=== PATIENT | male | born 2000 | race African-American/Black ===

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

== ENCOUNTER 2018-03-06 11:07 | Emergency (ER) | payer SELFPAY ==
[2018-03-06 11:22] VITALS: BP 143/93
--- NOTE | 2018-03-06 11:43 | ER Document Report ---
ED Medical Screen (RME) - General Chief Complaint: Psych Problem Stated Complaint: PSYCH EVAL Time Seen by Provider: 03/06/18 11:26 Notes: Patient is a 17-year-old male that presents to the emergency department for chief complaint of bipolar and hallucinations. Patient not currently on medications for bipolar. He has had combative behavior at home and hallucinations. History of hospitalizations of Vicodin for similar behavior ROS: GENERAL: Denies fever of chills CV: Denies chest pain PHYSICAL EXAMINATION: GENERAL: Well-appearing, well-nourished and in no acute distress. HEAD: Atraumatic, normocephalic. EYES: Pupils equal round extraocular movements intact, conjunctiva are normal. ENT: Nares patent NECK: Normal range of motion LUNGS: No respiratory distress Musculoskeletal: Normal range of motion NEUROLOGICAL: Normal speech, normal gait. PSYCH: Poor eye contact, withdrawn, agitated MDM: Patient seen and examined for rapid initial assessment. Vital signs reviewed. A comprehensive ED assessment and evaluation of the patient, analysis of test results and completion of the medical decision making process will be conducted by additional ED providers. TRAVEL OUTSIDE OF THE [place] IN LAST 30 DAYS: No - Related Data Allergies/Adverse Reactions: No Known Allergies Allergy (Verified 03/06/18 11:08) Past Medical History Renal/ Medical History: Denies: Hx Peritoneal Dialysis Psychiatric Medical History: Reports: Hx Bipolar Disorder - Immunizations History of Influenza Vaccine for 03/2017 - 08/2017 Season: Unknown Physical Exam - Vital signs Vitals: Temp Pulse Resp BP Pulse Ox 98.1 F 86 16 143/93 H 99 03/06/18 11:20 03/06/18 11:20 03/06/18 11:20 03/06/18 11:20 03/06/18 11:20 Course - Vital Signs Vital signs: Temp Pulse Resp BP Pulse Ox 98.1 F 86 16 143/93 H 99 03/06/18 11:20 03/06/18 11:20 03/06/18 11:20 03/06/18 11:20 03/06/18 11:20 Doctor's Discharge - Discharge Referrals: MEAGAN ARTIS MD [Primary Care Provider] - Follow up as needed
--- NOTE | 2018-03-06 12:59 | ER Document Report ---
ED General - General Chief Complaint: Psych Problem Stated Complaint: PSYCH EVAL Time Seen by Provider: 03/06/18 11:26 TRAVEL OUTSIDE OF THE [place] IN LAST 30 DAYS: No - HPI Notes: Patient is a 17-year-old male with a history of bipolar and mental health disorder who presents to the ED requesting be placed back on medications. Patient states that he has been smoking weed over the last 8 months and stopped taking his psych meds. Patient states that the weight has been making him trip out and hallucinate. Patient has had decreased p.o. intake, but is still able to eat and drink without any difficulties. He is urinating normally. Patient states that aside from his head feeling foggy, he feels well. He denies any drug allergies. He is accompanied today by his mother. He has not had any SI/ HI. Denies any headache, fever, head injury, neck pain, URI, sore throat, chest pain, palpitations, syncope, cough, shortness of breath, wheeze, dyspnea, abdominal pain, nausea/vomiting/diarrhea, urinary retention, dysuria, hematuria , loss of control of bowel or bladder, numbness/tingling, muscle paralysis/ weakness, seizure, or rash. - Related Data Allergies/Adverse Reactions: No Known Allergies Allergy (Verified 03/06/18 11:08) Past Medical History - Social History Smoking Status: Never Smoker Chew tobacco use (# tins/day): No Frequency of alcohol use: None Drug Abuse: Marijuana Family History: None Patient has suicidal ideation: No Patient has homicidal ideation: No Renal/ Medical History: Denies: Hx Peritoneal Dialysis Psychiatric Medical History: Reports: Hx Bipolar Disorder Review of Systems - Review of Systems -: Yes All other systems reviewed and negative Physical Exam - Vital signs Vitals: Temp Pulse Resp BP Pulse Ox 98.1 F 86 16 143/93 H 99 03/06/18 11:20 03/06/18 11:20 03/06/18 11:20 03/06/18 11:20 03/06/18 11:20 - Notes Notes: PHYSICAL EXAMINATION: GENERAL: Well-appearing, well-nourished and in no acute distress. HEAD: Atraumatic, normocephalic. EYES: Pupils equal round and reactive to light, extraocular movements intact, sclera anicteric, conjunctiva are normal. ENT: Nares patent and without discharge. oropharynx clear without exudates. No tonsilar hypertrophy or erythema. Moist mucous membranes. NECK: Normal range of motion, supple without lymphadenopathy LUNGS: Breath sounds clear to auscultation bilaterally and equal. No wheezes rales or rhonchi. HEART: Regular rate and rhythm without murmurs, rubs, gallops. ABDOMEN: Soft, nontender, nondistended abdomen. No guarding, no rebound. No masses appreciated. Normal bowel sounds present. No CVA tenderness bilaterally. Musculoskeletal: FROM to passive/active. Strength 5+/5. Extremities: No cyanosis, clubbing, or edema b/l. Peripheral pulses 2+. Capillary refill less than 3 seconds. NEUROLOGICAL: Cranial nerves grossly intact. Normal speech, normal gait. PSYCH: excitable, anxious SKIN: Warm, Dry, normal turgor, no rashes or lesions noted. Course - Re-evaluation Re-evalutation: 03/06/18 12:59 Pt will be eval'd by our psychology team. 03/06/18 13:35 Patient is an afebrile, well-hydrated, 17-year-old male who presents to the ED for mental health disorder. Vitals are acceptable without any significant tachycardia, tachypnea, or hypoxia. PE is otherwise unremarkable. Patient has no SI/HI. He is nontoxic-appearing and is tolerating p.o. without difficulties. He is accompanied by mother who is going to keep a close eye on him at home and feels comfortable in doing so. Psychology team reviewed and evaluated the patient and they recommended Zyprexa, Cogentin, and clonidine. No further labs or imaging warranted at this time. Current lab work acceptable. Conservative measures for symptoms. Recheck with your PCM in 3-5 days. Schedule appointment with a mental health clinic. Return to the ED with any worsening/concerning symptoms otherwise as reviewed in discharge. Patient and mother are in agreement. - Vital Signs Vital signs: Temp Pulse Resp BP Pulse Ox 98.1 F 86 16 143/93 H 99 03/06/18 11:20 03/06/18 11:20 03/06/18 11:27 03/06/18 11:20 03/06/18 11:20 - Laboratory Result Diagrams: 03/06/18 12:08 03/06/18 12:08 Laboratory results interpreted by me: 03/06/18 12:08 Total Protein 8.6 H Salicylates < 1.0 L Acetaminophen < 10 L Discharge - Discharge Clinical Impression: Mental health disorder Condition: Stable Disposition: HOME, SELF-CARE Additional Instructions: Take your medications as directed Healthy diet and exercise Avoid smoking marijuana or doing other drugs Recheck with your PCM in 3-5 days Schedule an appointment with a mental health facility Return to the ED with any worsening symptoms and/or development of fever, headache, changes in behavior/mentation/vision/speech, chest pain, palpitations , syncope, shortness of breath, trouble breathing, abdominal pain, n/v/d, blood in stool/urine, loss of control of bowel/bladder, urinary retention, muscle weakness/paralysis, saddle anesthesia, numbness/tingling, or other worsening symptoms that are concerning to you. Prescriptions: Clonidine HCl [Catapres 0.1 mg Tablet] 0.1 mg PO QHS #30 tablet Benztropine Mesylate [Cogentin 1 mg Tablet] 1 tab PO DAILY #30 tab Olanzapine [Zyprexa] 5 mg PO BID #60 tablet Forms: Elevated Blood Pressure, Smoking Cessation Education Referrals: MEAGAN ARTIS MD [Primary Care Provider] - Follow up in 3-5 days [facility] [Provider Group] - Follow up in 1 week
[2018-03-06 13:04] LABS: ALANINE AMINOTRANSFERASE 24 U/L (10-40); ALBUMIN 5.1 g/dL (3.7-5.6); ALKALINE PHOSPHATASE 81 U/L (65-260); ANION GAP 10 (5-19); ASPARTATE AMINO TRANSFERASE 26 U/L (10-45); BILIRUBIN,DIRECT 0.3 mg/dL (0.0-0.4); BILIRUBIN,TOTAL 0.4 mg/dL (0.2-1.3); BLOOD UREA NITROGEN 12 mg/dL (7-20); CALCIUM 10.2 mg/dL (8.4-10.2); CARBON DIOXIDE 27 mmol/L (22-30); CHLORIDE 104 mmol/L (98-107); GLUCOSE 108 mg/dL (75-110); SODIUM 140.6 mmol/L (137-145); TOTAL PROTEIN 8.6 g/dL (6.3-8.2)
[2018-03-06 13:05] LABS: ACETAMINOPHEN < 10 ug/mL (10-30); ALCOHOL < 10 mg/dL (NONE DETECTED); SALICYLATE < 1.0 mg/dL (2.0-20.0)
[2018-03-06 13:20] LABS: HEMATOCRIT 42.8 % (37.9-51.0); HEMOGLOBIN 14.6 g/dL (13.5-17.0); MEAN CORPUSCULAR HEMOGLOBIN 28.8 pg (27.0-33.4); MEAN CORPUSCULAR HGB CONC 34.1 g/dL (32.0-36.0); MEAN CORPUSCULAR VOLUME 85 fl (80-97); RED BLOOD COUNT 5.05 10^6/uL (4.35-5.55)
[2018-03-06 13:21] LABS: BASOPHILS % (AUTO) 0.2 % (0-2); EOSINOPHILS % (AUTO) 0.3 % (0-6); LYMPHOCYTES % (AUTO) 24.2 % (13-45); MONOCYTES % (AUTO) 6.5 % (3-13); PLATELET COUNT 199 10^3/uL (150-450); SEGMENTED NEUTROPHILS % (AUTO) 68.8 % (42-78)
[2018-03-06 13:22] LABS: ABSOLUTE LYMPHOCYTES (AUTO) 1.2 10^3/uL (0.5-4.7); ABSOLUTE MONOCYTES (AUTO) 0.3 10^3/uL (0.1-1.4); ABSOLUTE NEUT (AUTO) 3.5 10^3/uL (1.7-8.2); TOTAL CELLS COUNTED % (AUTO) 100 %
[2018-03-06 13:22] LABS: APPEARANCE,URINE CLEAR; BILIRUBIN,URINE NEGATIVE (NEGATIVE); COLOR,URINE STRAW; GLUCOSE, URINE NEGATIVE (NEGATIVE); KETONES,URINE NEGATIVE (NEGATIVE); LEUKOCYTE ESTERASE,URINE NEGATIVE (NEGATIVE); NITRITE,URINE NEGATIVE (NEGATIVE); PROTEIN,URINE NEGATIVE (NEGATIVE); URINE SPECIFIC GRAVITY 1.006; UROBILINOGEN,URINE NEGATIVE mg/dL (<2.0)
[2018-03-06] MEDS ORDERED: BENZTROPINE MESYLATE 1 MG TABLET PO ONE (13:36)
[2018-03-06] MEDS ORDERED: OLANZAPINE 5 MG TABLET PO ONE (13:36)
[2018-03-06 13:45] LABS: URINE AMPHETAMINES SCREEN NEGATIVE; URINE BARBITURATES SCREEN NEGATIVE; URINE BENZODIAZEPINES SCREEN NEGATIVE; URINE COCAINE SCREEN NEGATIVE; URINE MARIJUANA (THC) SCREEN UNCONFIRMED POSITIVE; URINE METHADONE SCREEN NEGATIVE; URINE PHENCYCLIDINE SCREEN NEGATIVE
--- NOTE | 2018-03-06 13:46 | PSYCHOLOGICAL NOTE ---
Psych Note - Psych Note Psych Note: Reason for Consult: psychosis Patient is a 17-year-old male that presents to the emergency department for chief complaint of bipolar and hallucinations. Patient's mother discloses that when the patient's on his medication she can mange him. Patient discloses that he is trying to get medication so he can get his head on right. He reports that he has spoke some bad weed but really needs to get his head on right. He discloses that he normally takes medication but is out and is able to identify his medications as Zyprexa, Cogentin, and clonidine. Patient is alert and orientated to person, place, time and circumstance. Mood is euthymic with congruent affect. Patient denies suicidal and homicidal ideations. Delusions were absent. Patient's thought processes are organized and linear. Eye contact was well-maintained. Conversational speech was within normal rate, tone and prosody. Intellectual abilities appear to be within the average range. Attention and concentration are fair. Insight, judgment, impulse control are fair. Patient is recommended to restart his home medications Zyprexa 5mg twice daily Cogentin 1mg daily Clonidine 0.1 mg every evening at bedtime 298.9 (F29) unspecified psychosis R/O 296.80 (F31.9) Unspecified Bipolar and Related Disorder Impression/Plan: Patient is considered cleared from acute psychiatric services. Patient has a history of presenting after smoking marijuana and having difficulties in the after effects. Patient is demonstrating that he has organized and linear thought processes as evidenced by his plan to get restarted on his medications. Patient is not in a manic state; he is observed to be sitting calmly in the bed and is redirectable. Patient still does have some moments of repeatedly stating comments; ie need to get my head on right. Patient's mother she agrees to be part of the discharge plan which includes no access to medications or weapons and follows through with outpatient mental health treatment i.e. medication management and therapeutic intervention. Clinician highly encouraged patient to cease any use of illegal substances. Dr. San was consulted on the care and management of this patient; attending physician is in agreement with recommendations and dispositions.
--- NOTE | 2018-03-06 23:02 | EKG REPORT ---
SEVERITY:- ABNORMAL ECG - SINUS RHYTHM ATRIAL PREMATURE COMPLEX NONSPECIFIC INTRAVENTRICULAR CONDUCTION DELAY : Confirmed by: Peggy Covarrubias 06-Mar-2018 23:01:07
== END 2018-03-06 13:57 | disposition home or self-care (01) ==
LOC: ER 11:07
DX: F29 Unspecified psychosis not due to a substance or known physiological condition (principal); T43.596A Underdosing of other antipsychotics and neuroleptics, initial encounter; T44.3X6A Underdosing of other parasympatholytics [anticholinergics and antimuscarinics] and spasmolytics, initial encounter; T46.5X6A Underdosing of other antihypertensive drugs, initial encounter; Z91.128 Patient's intentional underdosing of medication regimen for other reason; F12.10 Cannabis abuse, uncomplicated
CPT/HCPCS: 36415; 80053; 80307; 81001; 85025; 93005; 93010; 99285

== ENCOUNTER 2018-05-19 14:34 | Emergency (ER) | payer SELFPAY ==
[2018-05-19 14:47] VITALS: BP 128/88
--- NOTE | 2018-05-19 15:08 | ER Document Report ---
ED General <VENU SAN - Last Filed: 05/19/18 16:29> - General TRAVEL OUTSIDE OF THE [place] IN LAST 30 DAYS: No <KURT MOCTEZUMA - Last Filed: 05/19/18 16:48> - General Chief Complaint: Psych Problem Stated Complaint: PSYCH EVAL Time Seen by Provider: 05/19/18 15:07 Notes: Patient is a 18-year-old male that presents to the emergency department for chief complaint of bipolar disorder. Mother is providing history. She states that the patient has been out of medication for bipolar disorder for approximately 1 month, he was previously on Zyprexa, but she is been unable to afford the medication, he was recently in the emergency department and February , for similar symptoms. He has had decreased sleep, and some paranoia, he has been tearful, and more agitated. She denies him being aggressive, or violent, and he has not had suicidal or homicidal thoughts. He denies having any hallucinations at this time. She thinks the main issues use has been off his medication and if he could get back on them that he would be much better. No other complaints at this time. Past Medical History: Bipolar disorder Past Surgical History: Denies surgical history Social History: Denies tobacco, alcohol or illicit drug use Family History: Reviewed and noncontributory for presenting illness Allergies: Reviewed, see documented allergy list. REVIEW OF SYSTEMS: Other than noted above, the 12 point review of systems was reviewed with the patient and were negative, all pertinent findings are included in the HPI. PHYSICAL EXAMINATION: Vital signs reviewed, nursing noted reviewed. GENERAL: Well-appearing, well-nourished, no acute distress HEAD: Atraumatic, normocephalic. EYES: Eyes appear normal, extraocular movements intact, sclera anicteric, conjunctiva are normal. ENT: nares patent, oropharynx clear without exudates. Moist mucous membranes. NECK: Normal range of motion, supple without lymphadenopathy LUNGS: Breath sounds clear to auscultation bilaterally and equal. No wheezes rales or rhonchi. HEART: Regular rate and rhythm without murmurs ABDOMEN: Soft, nontender, normoactive bowel sounds. No rebound, guarding, or rigidity. No masses appreciated. EXTREMITIES: Nontender, good range of motion, no pitting or edema. NEUROLOGICAL: No focal neurological deficits. Moves all extremities spontaneously Motor and sensory grossly intact on exam. PSYCH: Flat affect, mildly agitated, but not aggressive SKIN: Warm, Dry, normal turgor, no rashes or lesions noted on exposed skin (KURT MOCTEZUMA) - Related Data Allergies/Adverse Reactions: No Known Allergies Allergy (Verified 03/06/18 11:08) Past Medical History - Social History Smoking Status: Unknown if Ever Smoked <VENU SAN - Last Filed: 05/19/18 16:29> - Social History Family History: None Renal/ Medical History: Denies: Hx Peritoneal Dialysis Psychiatric Medical History: Reports: Hx Bipolar Disorder <KURT MOCTEZUMA - Last Filed: 05/19/18 16:48> - Vital signs Vitals: Pulse Resp BP Pulse Ox 104 H 18 128/88 H 98 05/19/18 14:46 05/19/18 14:46 05/19/18 14:46 05/19/18 14:46 Course - Laboratory Result Diagrams: 05/19/18 15:48 05/19/18 15:48 <VENU SAN - Last Filed: 05/19/18 16:29> - Laboratory Result Diagrams: 05/19/18 15:48 05/19/18 15:48 <KURT MOCTEZUMA - Last Filed: 05/19/18 16:48> - Re-evaluation Re-evalutation: Patient seen and examined, vital signs reviewed. Medical screening testing was ordered including bloodwork, EKG, and toxicology. Results of testing were reviewed. Testing demonstrated unremarkable blood work. Patient has been stable from a hemodynamic standpoint. At this point I feel that the patient is medically cleared and can be further evaluated from a psychiatric standpoint for final disposition from the emergency department. Patient updated on plan of care. Case discussed with Dr. San, who assessed the patient, and is familiar with this patient, discussed with mother, administering 10 mg of IM Zyprexa, and then starting the patient on his home medications, provided that he is medically clear, and we will have him follow-up with outpatient psychiatry. He was previously on Zyprexa, Cogentin, and clonidine. (KURT MOCTEZUMA) - Vital Signs Vital signs: Temp Pulse Resp BP Pulse Ox 104 H 18 128/88 H 98 05/19/18 14:46 05/19/18 14:46 05/19/18 14:46 05/19/18 14:46 - Laboratory Laboratory results interpreted by me: 05/19/18 05/19/18 15:48 15:48 WBC 3.9 L Calcium 10.8 H Total Protein 9.3 H Albumin 5.6 H Salicylates < 1.0 L Acetaminophen < 10 L - EKG Interpretation by Me Additional EKG results interpreted by me: ECG demonstrates sinus rhythm with a ventricular rate of 99 bpm, normal axis, normal intervals, baseline artifact noted, no evidence of acute ischemia on this EKG, this is compared with prior EKG from 03/06/2018, without significant change. (KURT MOCTEZUMA) Discharge <VENU SAN - Last Filed: 05/19/18 16:29> <KURT MOCTEZUMA - Last Filed: 05/19/18 16:48> - Discharge Clinical Impression: Bipolar 1 disorder Condition: Stable Disposition: HOME, SELF-CARE Additional Instructions: You were assessed and evaluated in the Emergency Department by the Medical and Behavioral Health Teams and found to be appropriate for discharge. You were provided medication management for Bop;oar Disorder as you indicated you have been off your home medications of Zyprexa, Clonidine, Cogentin for approximately one month. You were given a dose of Zyprexa and scripts for ongoing medications until you are seen by your mental health provider. You are encouraged to follow up with your provider within the next 7 days for ongoing medication management. Medication Recommendations: 1. Zyprexa 5 mg twice per day 2. Cogention 1 mg daily 3. Clonidine 0.1 mg at bedtime. Bipolar Disorder Bipolar disorder is also called manic-depressive disorder. Depression alternates with brain hyperactivity called joanna. Each phase lasts from several days to a few weeks. We don't know exactly what causes bipolar disorder , but it's treatable. During the "manic phase," you may feel elated and energetic. You may have racing thoughts, rapid speech, increased activity, and grandiose ideas. During this time, you may not realize how poor your judgment is. Inappropriate spending, drug abuse, excessive alcohol use, marriage problems, and irresponsible sexual behavior are common during the manic phase. During the "depressive phase," you might feel depressed, guilty, worthless , fatigued, and unable to concentrate. You might have thoughts of suicide. Good treatments are available for bipolar disorder. [place] is a classic drug for bipolar disorder, and is still often useful. If the manic phase is very mild, an antidepressant alone can be prescribed. If the manic phase is very severe, an antipsychotic medicine (such as Haldol) may be needed. The treatment must be matched to your symptoms, so it's important to work closely with your psychiatric care provider. Contact your physician, the hospital emergency center, crisis line, or your counselor if you are losing control or having self-destructive thoughts. Please return to the Emergency Department if your symptoms worsen or return. Prescriptions: Benztropine Mesylate [Cogentin 1 mg Tablet] 1 mg PO QHS #30 tablet Clonidine HCl [Catapres] 0.1 mg PO QHS #30 tablet Olanzapine [Zyprexa 5 mg Tablet] 5 mg PO Q12 #60 tablet
[2018-05-19] MEDS ORDERED: OLANZAPINE 5 MG TABLET PO ONE (15:36)
[2018-05-19] MEDS ORDERED: HYDROXYZINE PAMOATE 50 MG CAPSULE PO ONE (15:36)
[2018-05-19 15:58] LABS: ABSOLUTE LYMPHOCYTES (AUTO) 1.1 10^3/uL (0.5-4.7); ABSOLUTE MONOCYTES (AUTO) 0.4 10^3/uL (0.1-1.4); ABSOLUTE NEUT (AUTO) 2.4 10^3/uL (1.7-8.2); BASOPHILS % (AUTO) 0.5 % (0-2); EOSINOPHILS % (AUTO) 0.5 % (0-6); HEMATOCRIT 44.3 % (37.9-51.0); HEMOGLOBIN 15.3 g/dL (13.5-17.0); LYMPHOCYTES % (AUTO) 27.4 % (13-45); MEAN CORPUSCULAR HEMOGLOBIN 28.9 pg (27.0-33.4); MEAN CORPUSCULAR HGB CONC 34.6 g/dL (32.0-36.0); MEAN CORPUSCULAR VOLUME 84 fl (80-97); MONOCYTES % (AUTO) 9.6 % (3-13); PLATELET COUNT 199 10^3/uL (150-450); RED BLOOD COUNT 5.29 10^6/uL (4.35-5.55); RED CELL DISTRIBUTION WIDTH 13.2 % (11.5-14.0); TOTAL CELLS COUNTED % (AUTO) 100 %; WHITE BLOOD COUNT 3.9 10^3/uL (4.0-10.5)
[2018-05-19] MEDS ORDERED: OLANZAPINE INJ/PF 10 MG SDV IM ONE (16:05)
[2018-05-19 16:19] LABS: ACETAMINOPHEN < 10 ug/mL (10-30); ALANINE AMINOTRANSFERASE 27 U/L (21-72); ALBUMIN 5.6 g/dL (3.5-5.0); ALCOHOL < 10 mg/dL (NONE DETECTED); ALKALINE PHOSPHATASE 83 U/L (38-126); ANION GAP 18 (5-19); ASPARTATE AMINO TRANSFERASE 27 U/L (17-59); BILIRUBIN,DIRECT 0.2 mg/dL (0.0-0.4); BILIRUBIN,TOTAL 0.7 mg/dL (0.2-1.3); BLOOD UREA NITROGEN 15 mg/dL (7-20); CALCIUM 10.8 mg/dL (8.4-10.2); CARBON DIOXIDE 24 mmol/L (22-30); CHLORIDE 101 mmol/L (98-107); GLUCOSE 101 mg/dL (75-110); POTASSIUM 4.3 mmol/L (3.6-5.0); SALICYLATE < 1.0 mg/dL (2.0-20.0); SODIUM 142.6 mmol/L (137-145); TOTAL PROTEIN 9.3 g/dL (6.3-8.2)
[2018-05-19 16:35] LABS: APPEARANCE,URINE CLEAR; BILIRUBIN,URINE NEGATIVE (NEGATIVE); COLOR,URINE YELLOW; GLUCOSE, URINE NEGATIVE (NEGATIVE); KETONES,URINE 80 mg/dL (NEGATIVE); LEUKOCYTE ESTERASE,URINE NEGATIVE (NEGATIVE); NITRITE,URINE NEGATIVE (NEGATIVE); PROTEIN,URINE 30 mg/dL (NEGATIVE); URINE SPECIFIC GRAVITY 1.026; UROBILINOGEN,URINE NEGATIVE mg/dL (<2.0)
[2018-05-19 16:49] LABS: URINE AMPHETAMINES SCREEN NEGATIVE; URINE BARBITURATES SCREEN NEGATIVE; URINE BENZODIAZEPINES SCREEN NEGATIVE; URINE COCAINE SCREEN NEGATIVE; URINE MARIJUANA (THC) SCREEN NEGATIVE; URINE METHADONE SCREEN NEGATIVE; URINE PHENCYCLIDINE SCREEN NEGATIVE
--- NOTE | 2018-05-19 17:03 | PSYCHOLOGICAL NOTE ---
Psych Note - Psych Note Date seen by psych provider: 05/19/18 Time seen by psych provider: 15:45 Psych Note: Met with Patient and his mother. Patient was not overly cooperative initially as he presented paranoid and continually looked at his mother for answers. However, as I continued to talk calmly with the Patient he relaxed and allowed for the nurse to draw blood and eventually provided a urine sample. He also agreed to take caesar emedicine to help him calm down and feel better. Mother reported her son had been off his medication for approximately one month since her insurance no longer covered the medication in full. She reported his medication zyprexa, cogentin, and clonidine and was costing almost $200 / month with insurance. She reported the Patient was acting paranoid, restless,and bizarre at times, but not verbally or physically aggressive. She reported in the past he only required a shot of medication and within a few hours he started to return to normal or at least to calm down and show less paranoia. I advised Patient mother that zyprexa could now be purchased at [facility] for $9 and she indicated she felt gracious for this information. Mother reported if we could provide the Patient with Patient with medication prior to discharge, she would feel comfortable with taking him home. Patient indicated he was in agreement with mother and wanted to go home. Patient was oriented to person, place, time,a nd circumstance. Mood was paranoid and not overly cooperative nut later became more cooperative with evaluation. He denied auditory / visual hallucination and delusions were absent. Thought processes were slow but linear and logical/ Conversational speech was within normal limits for rate, tone, and prosody. Intellectual abilities appeared in the lower end of the average range. Attention and concentration was fair, while insight, judgment and impulse control was poor. Patient continually was grabbing at his penis and mother reported this was new behavior. Medication recommendation by psychiatric provider included: 1. Zyprexa 10 mg IM one time now 2. Zyprexa 5 mg twice per day 3. Cogentin 1 mg daily 4. Clonidine 0.1 mg at night Diagnoses. 1. 296.44 (F31.2) Bipolar I Disorder, Manic, With Psychotic Features Impression/ Plan: Patient is cleared from acute psychiatric services. He presented with mild acute paranoia and was restless but calmed and was cooperative during the rest of evaluation. He agreed to take the medication as prescribed and mother indicated she felt [id number] with Patient going home with her as long as she had scripts for his medication. She agreed to follow up with his outpatient provider next week. Mother also advised of discount prescriptions at [facility] for Zyprexa. Patient received the medications in the ED and appeared to calm quickly. ED Physician in agreement with recommendations and disposition.
--- NOTE | 2018-05-19 21:40 | EKG REPORT ---
SEVERITY:- ABNORMAL ECG - SINUS OR ECTOPIC ATRIAL TACHYCARDIA NONSPECIFIC INTRAVENTRICULAR CONDUCTION DELAY INFERIOR Q WAVES, PROBABLY NORMAL VARIATION ST DEPRESSION, CONSIDER ISCHEMIA, INF LEADS : Confirmed by: Ynes Blair MD 19-May-2018 21:39:54
== END 2018-05-19 16:55 | disposition home or self-care (01) ==
LOC: ER 14:34
DX: F31.2 Bipolar disorder, current episode manic severe with psychotic features (principal); T43.596A Underdosing of other antipsychotics and neuroleptics, initial encounter; T44.3X6A Underdosing of other parasympatholytics [anticholinergics and antimuscarinics] and spasmolytics, initial encounter; T46.5X6A Underdosing of other antihypertensive drugs, initial encounter; Z91.120 Patient's intentional underdosing of medication regimen due to financial hardship; Z91.14 Patient's other noncompliance with medication regimen
CPT/HCPCS: 36415; 80053; 80307; 81001; 85025; 93005; 93010; 96372; 99285